=== PATIENT | male | born 1990 | race American Indian/Alaskan Native ===

== ENCOUNTER 2018-01-25 07:15 | Emergency (ER) | payer OTHER, BC ==
[~2018-01-25] VITALS: Ht 177.8 cm; Wt 93.0 kg
[~2018-01-25 07:15] MED LIST: NAPROXEN375 MG PO; NORCO 5-325 TA1 EACH PO; SEPTRA DS TABL1 EACH PO
== END 2018-01-25 08:19 | disposition home or self-care (01) ==
LOC: ED 07:15
PROC: 0HQFXZZ Repair Right Hand Skin, External Approach (ICD-10-PCS; principal; 2018-01-25)
DX: S61.210A Laceration without foreign body of right index finger without damage to nail, initial encounter (principal); Z23 Encounter for immunization; W26.0XXA Contact with knife, initial encounter; Y92.89 Other specified places as the place of occurrence of the external cause; Y99.0 Civilian activity done for income or pay
CPT/HCPCS: 12001; 90471; 90715; 99282

== ENCOUNTER 2018-02-04 16:14 | Emergency (ER) | payer OTHER, BC ==
[~2018-02-04] VITALS: Ht 177.8 cm; Wt 91.6 kg
== END 2018-02-04 16:36 | disposition home or self-care (01) ==
LOC: ED 16:14
DX: Z48.02 Encounter for removal of sutures (principal)

== ENCOUNTER 2018-07-13 06:14 | Emergency (ER) | payer OTHER ==
[~2018-07-13] VITALS: Ht 177.8 cm; Wt 91.6 kg
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
--- NOTE | 2018-07-13 14:15 | EKG ---
[facility] [address] [facility] [place] [address] Signed Normal sinus rhythm Incomplete right bundle branch block Cannot rule out Anterior infarct , age undetermined Abnormal ECG No previous ECGs available Confirmed by DIANNE MUSA MD ([id number]) on 07/13/2018 2:15:25 PM Electronically Signed By: DIANNE MUSA MD 07/13/18 1415 PATIENT NAME: MARKUSKAITY O'BRIEN Electrocardiogram DATE OF : 89 PHYSICIAN: DIANNE MUSA MD REPORT #: [id number] REPORT IS CONFIDENTIAL AND NOT TO BE RELEASED WITHOUT AUTHORIZATION
== END 2018-07-13 06:40 | disposition home or self-care (01) ==
LOC: ED 06:14
DX: R07.89 Other chest pain (principal)
CPT/HCPCS: 71045; 93005; 93010; 99285-25

== ENCOUNTER 2018-12-01 10:58 | Emergency (ER) | payer OTHER ==
[~2018-12-01] VITALS: Ht 177.8 cm; Wt 97.5 kg
--- OUTSIDE RECORDS SUMMARY | 2018-12-01 11:00 | XMS ---
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 Care History Medical/Surgical 07/15/2018 [facility] \T\middot;\T\nbsp; PATIENT IS A [employer] MEMBER. \T\middot;\T\nbsp; PLEASE REFER PATIENT TO [facility] FOR NON EMERGENT MEDICAL NEEDS. \T\middot;\ T\nbsp; [facility] CAN SEE PATIENTS SAME DAY FOR APTS IF PATIENT CALLS FIRST THING IN THE MORNING. E.D. VISIT COUNT (12 MO.) 4 [facility] TOTAL 4 NOTE: Visits indicate total known visits. ED/UCC VISIT TRACKING (12 MO.) 12/01/2018 10:59 [facility] TYPE: Emergency COMPLAINT: - BLOOD IN STOOL 07/13/2018 06:15 [facility] [place] TYPE: Emergency COMPLAINT: - CHEST PAIN DIAGNOSES: - Other chest pain 02/04/2018 16:14 [facility] [place] TYPE: Emergency COMPLAINT: - SUTURE REMOVAL DIAGNOSES: - Encounter for removal of sutures 01/25/2018 07:[address] [facility] [place] TYPE: Emergency COMPLAINT: - R INDEX FINGER [...] visits to display in this time frame [email or web address]
== END 2018-12-01 11:46 | disposition home or self-care (01) ==
LOC: ED 10:58
DX: K92.1 Melena (principal); Z90.49 Acquired absence of other specified parts of digestive tract
CPT/HCPCS: 99284